=== PATIENT | male | born 1995 | race Caucasian/White ===

== ENCOUNTER 2018-01-20 22:58 | Emergency (ER) | payer BC ==
[~2018-01-20] VITALS: Ht 170.2 cm; Wt 90.0 kg
[~2018-01-20 22:58] MED LIST: ACET-2619 PO
[2018-01-20 23:13] VITALS: BP 146/80
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
--- NOTE | 2018-01-20 23:25 | NUR ---
Patient being evaluated by physician at bedside.
[2018-01-21 01:52] VITALS: BP 144/79
--- NOTE | 2018-01-21 01:52 | NUR ---
Patient discharged with v/s stable. Written and verbal after care instructions given and explained. Patient alert, oriented and verbalized understanding of instructions. Ambulatory with steady gait. All questions addressed prior to discharge. ID band removed. Patient advised to follow up with PMD. Rx of MOTRIN, ZOFRAN given. Patient educated on indication of medication including possible reaction and side effects. Opportunity to ask questions provided and answered.
== END 2018-01-21 01:52 | disposition home or self-care (01) ==
LOC: MED 22:58
DX: F07.81 Postconcussional syndrome (principal); Z88.0 Allergy status to penicillin
CPT/HCPCS: 70450; 72125; 99284

== ENCOUNTER 2019-08-18 00:43 | Emergency (ER) | payer BC ==
[~2019-08-18] VITALS: Ht 172.7 cm; Wt 81.2 kg
[2019-08-18 00:45] VITALS: BP 114/65
--- NOTE | 2019-08-18 00:45 | NUR ---
PT TRIAGED, SENT BACK TO LOBBY AWAITING FOR BED
--- NOTE | 2019-08-18 02:07 | NUR ---
PT AMBULATED TO BED #8
--- NOTE | 2019-08-18 02:13 | NUR ---
PATIENT PRESENTS TO ED WITH RASH SPREAD DIFFUSELY THROUGHOUT BODY, NOTICED SINCE THIS AM WORSENING. REPORTS ITCHING. NO ANGIOEDEMA OR SOB. OTC ANTI-ITCH CREAM WITHOUT RELIEF. DENIES N/V/D; SKIN IS PINK/WARM/DRY; AAOX4 WITH EVEN AND STEADY GAIT; LUNGS CLEAR BL; HR EVEN AND REGULAR; PT DENIES ANY FEVER, CP, SOB, OR COUGH AT THIS TIME; PATIENT STATES PAIN OF 0/10 AT THIS TIME; VSS; PATIENT POSITIONED FOR COMFORT; HOB ELEVATED; BEDRAILS UP X2; BED DOWN. ER MD MADE AWARE OF PT STATUS.
[2019-08-18] MEDS ORDERED: methylPREDNISolone SS 125 MG/2 ML VIAL IM ONE (03:50)
[2019-08-18] MEDS ORDERED: diphenhydrAMINE 50 MG/ML VIAL IM ONE (03:50)
[2019-08-18 04:30] VITALS: BP 116/69
--- NOTE | 2019-08-18 04:44 | NUR ---
Patient discharged with v/s stable. Written and verbal after care instructions given and explained. Patient alert, oriented and verbalized understanding of instructions. Ambulatory with steady gait. All questions addressed prior to discharge. ID band removed. Patient advised to follow up with PMD. Rx of PREDNISONE AND BENADRYL given. Patient educated on indication of medication including possible reaction and side effects. Opportunity to ask questions provided and answered.
== END 2019-08-18 04:45 | disposition home or self-care (01) ==
LOC: MED 00:43
DX: T78.40XA Allergy, unspecified, initial encounter (principal); R21 Rash and other nonspecific skin eruption; Z79.899 Other long term (current) drug therapy; Z88.0 Allergy status to penicillin; X58.XXXA Exposure to other specified factors, initial encounter
CPT/HCPCS: 96372; 99283; J1200; J2930